=== PATIENT | male | born 1990 | race Caucasian/White ===

== ENCOUNTER 2022-09-11 13:15 | Emergency (ER) | payer SELFPAY ==
[~2022-09-11] VITALS: Ht 182.9 cm; Wt 72.7 kg
[2022-09-11 18:25] VITALS: BP 96/62
== END 2022-09-11 18:51 ==
LOC: EDBD 13:16 → EMS 13:16
DX: T40.411A Poisoning by fentanyl or fentanyl analogs, accidental (unintentional), initial encounter (principal); Y92.89 Other specified places as the place of occurrence of the external cause; F15.90 Other stimulant use, unspecified, uncomplicated
CPT/HCPCS: 99284; Z7502